=== PATIENT | male | born 1975 | race Caucasian/White ===

== ENCOUNTER 2019-01-27 13:20 | Day surgery (SDC) | payer OTHER ==
[~2019-01-27] VITALS: Ht 172.7 cm; Wt 78.8 kg
[~2019-01-27 13:20] MED LIST: DAYQUIL PO; GABA600T14 PO; MELOXICAM PO; NYQUIL PO; SUDAFED PO; SUDAFED SINUS PO; TRAMADOL PO
[2019-01-27 13:57] VITALS: BP 123/78
[2019-01-27] MEDS ORDERED: OXYC-302 PO (14:07)
[2019-01-27] MEDS ORDERED: LACTATED RINGERS 1,000 ML IV SCH (14:24)
[2019-01-27] MEDS ORDERED: MIDAZOLAM 1 MG/ML, 2ML ONE (14:42)
[2019-01-27] MEDS ORDERED: CEFAZOLIN 1,000 MG ONE ×2 (14:43)
[2019-01-27] MEDS ORDERED: PROPOFOL 10 MG/ML, 20ML ONE (14:43)
[2019-01-27] MEDS ORDERED: FENTANYL PF 250 MCG/5ML ONE (14:43)
[2019-01-27] MEDS ORDERED: ROPIvacaine/PF 0.5%, 30 ML ONE ×2 (14:45)
[2019-01-27] MEDS ORDERED: BUPIVACAINE/PF-EPI 0.5% 1:200K ONE (15:27)
[2019-01-27] MEDS ORDERED: MORPHINE SULFATE 4 MG/ML, 1ML IVPush PRN (15:30)
[2019-01-27] MEDS ORDERED: hydrALAzine 20 MG/ML, 1ML IV PRN (15:30)
[2019-01-27] MEDS ORDERED: ONDANSETRON ODT 8 MG PO PRN (15:30)
[2019-01-27] MEDS ORDERED: ONDANSETRON 2MG/ML, 2ML IV PRN (15:30)
[2019-01-27] MEDS ORDERED: PROMETHAZINE 25 MG SUPP PR PRN (15:30)
[2019-01-27] MEDS ORDERED: ACETAMINOPHEN 325 MG TABLET PO PRN (15:30)
[2019-01-27] MEDS ORDERED: PROMETHAZINE 12.5 MG SUPP PR PRN (15:30)
[2019-01-27] MEDS ORDERED: LABETALOL 5 MG/ML SYRINGE IV PRN (15:30)
[2019-01-27] MEDS ORDERED: HYDROmorphone 2 MG/ML, 1ML IVPush PRN (15:30)
[2019-01-27] MEDS ORDERED: MEPERIDINE/PF 25MG/0.5ML IVPush PRN (15:30)
[2019-01-27] MEDS ORDERED: PROMETHAZINE 25 MG/ML, 1ML IV PRN (15:30)
[2019-01-27] MEDS ORDERED: OXYcodone 5 MG/5 ML ORAL.SOL UDC PO PRN (15:30)
[2019-01-27] MEDS ORDERED: FENTANYL PF 100 MCG/2ML IV PRN (15:30)
[2019-01-27] MEDS ORDERED: PROMETHAZINE 25 MG/ML, 1ML IM PRN ×2 (15:30)
[2019-01-27] MEDS ORDERED: OXYcodone 5 MG/5 ML ORAL.SOL UDC ONE (16:50)
[2019-01-27] MEDS ORDERED: FENTANYL PF 100 MCG/2ML ONE (16:50)
== END 2019-01-27 18:30 | disposition home or self-care (01) ==
LOC: OR 13:20
PROVIDERS: ATTEND Orthopaedic Surgery
DX: S82.841A Displaced bimalleolar fracture of right lower leg, initial encounter for closed fracture (principal); X58.XXXA Exposure to other specified factors, initial encounter; Y93.89 Activity, other specified; Y92.89 Other specified places as the place of occurrence of the external cause; Y99.8 Other external cause status; Z87.891 Personal history of nicotine dependence
CPT/HCPCS: 27814; 64445; 64447; 73600; 76000; C1713; J0690; J2250; J2704; J2795; J3010; J7120; 76001

== ENCOUNTER 2019-12-04 18:35 | Emergency (ER) | payer SELFPAY ==
[~2019-12-04] VITALS: Ht 172.7 cm; Wt 79.3 kg
[~2019-12-04 18:35] MED LIST changes: +OXYC-302 PO
[2019-12-04] MEDS ORDERED: ALBUTEROL SULFATE 2.5 MG/3 ML NPPB ONE (19:00)
[2019-12-04 19:05] LABS: BASOPHILS # (AUTO) 0.03 x10^3/uL (0-0.1); BASOPHILS % (AUTO) 0 % (0-1); EOSINOPHILS # (AUTO) 0.16 x10^3/uL (0-0.4); EOSINOPHILS % (AUTO) 2 % (1-7); LYMPHOCYTES # (AUTO) 1.53 x10^3/uL (1-3.4); LYMPHOCYTES % (AUTO) 23 % (22-44); MD NO; MEAN CORPUSCULAR HEMOGLOBIN 28.9 pg (27.5-34.5); MEAN CORPUSCULAR HGB CONC 32.8 g/dL (33.2-36.2); MEAN CORPUSCULAR VOLUME 88.4 fL (81-97); MEAN PLATELET VOLUME 9.5 fL (7.4-10.4); MONOCYTES # (AUTO) 0.94 x10^3/uL (0.2-0.8); MONOCYTES % (AUTO) 14 % (2-9); NEUTROPHILS # (AUTO) 4.13 x10^3/uL (1.8-6.8); NEUTROPHILS % (AUTO) 61 % (42-75); PLATELET COUNT 281 x10^3/uL (130-400); RED BLOOD COUNT 5.53 x10^6/uL (4.38-5.82); RED CELL DISTRIBUTION WIDTH 14.7 % (9.4-14.8)
[2019-12-04 19:15] LABS: CHLORIDE 102 mmol/L (98-107)
[2019-12-04 19:19] LABS: ALBUMIN 3.9 g/dL (3.4-5.0); ANION GAP 6 mmol/L (5-15); CREATININE 1.11 mg/dL (0.7-1.3)
--- NOTE | 2019-12-04 19:58 | NUR ---
Pt presents to ed c/o "i've got pneuomonia." States coughx2.5 weeks w/ productive green phlegm present. Intermittent febrile s/s. States been hospitalized multiple times for pneumonia. Denies any hemoptosis or recent weight loss. Denies cp. Denies any gi/gu s/s. Monitoring applied. Vss. Called rt for duoneb.
[2019-12-04] MEDS ORDERED: ALBUTEROL/IPRATROPIUM 2.5MG/0.5MG, 3 ML ONE (20:05)
--- NOTE | 2019-12-04 20:07 | NUR ---
Rt at bedside.
--- NOTE | 2019-12-04 20:14 | NUR ---
pt is receving breathing tx now
[2019-12-04] MEDS ORDERED: ALBUTEROL SULFATE 2.5 MG/3 ML ONE (21:37)
--- NOTE | 2019-12-04 22:02 | NUR ---
pt rec'd 2nd tx breathing pt stated " ok i am ready to go home " vss stable oxygen sats wdl given dc instruction with prescription pt understood pt up ambulated to check out
[2019-12-04 22:03] VITALS: BP 121/65
== END 2019-12-04 22:30 | disposition home or self-care (01) ==
LOC: ED 22:00
DX: J20.9 Acute bronchitis, unspecified (principal); B34.9 Viral infection, unspecified; R51 Headache
CPT/HCPCS: 36415; 71046; 80048; 82040; 85025; 93005; 94640; 99284; J7512; J7613

== ENCOUNTER 2020-08-27 04:15 | Emergency (ER) | payer OTHER ==
[~2020-08-27] VITALS: Ht 172.7 cm; Wt 80.9 kg
[2020-08-27] MEDS ORDERED: ACETAMINOPHEN 500 MG TABLET ONE (05:21)
[2020-08-27] MEDS ORDERED: ACETAMINOPHEN 500 MG TABLET PO ONE (05:30)
[2020-08-27 06:24] VITALS: BP 128/85
== END 2020-08-27 06:45 | disposition home or self-care (01) ==
LOC: ED 05:29
DX: J00 Acute nasopharyngitis [common cold] (principal); Z20.828 Contact with and (suspected) exposure to other viral communicable diseases; R05 Cough; R09.81 Nasal congestion; R50.9 Fever, unspecified; M79.10 Myalgia, unspecified site
CPT/HCPCS: 36415; 71045; 87081; 87635; 87880; 99284

== ENCOUNTER 2021-04-05 18:34 | Emergency (ER) | payer MEDICAID, OTHER ==
[~2021-04-05] VITALS: Ht 172.7 cm; Wt 87.5 kg
[~2021-04-05 18:34] MED LIST changes: -OXYC-302 PO; +OXYC1TAB14 PO
[2021-04-05 19:11] LABS: BASOPHILS % (AUTO) 1 % (0-1); EOSINOPHILS % (AUTO) 3 % (1-7); LYMPHOCYTES % (AUTO) 23 % (22-44); MEAN CORPUSCULAR HEMOGLOBIN 29.1 pg (27.5-34.5); MEAN CORPUSCULAR HGB CONC 33.1 g/dL (33.2-36.2); MEAN PLATELET VOLUME 9.2 fL (7.4-10.4); MONOCYTES % (AUTO) 10 % (2-9); NEUTROPHILS % (AUTO) 63 % (42-75); PLATELET COUNT 298 x10^3/uL (130-400); RED BLOOD COUNT 5.24 x10^6/uL (4.38-5.82); RED CELL DISTRIBUTION WIDTH 14.3 % (9.4-14.8)
[2021-04-05 19:12] LABS: MD NO
[2021-04-05 19:21] LABS: ALANINE AMINOTRANSFERASE 19 U/L (12-78); ALBUMIN 3.8 g/dL (3.4-5.0); ANION GAP 4 mmol/L (5-15); CALCIUM 8.8 mg/dL (8.5-10.1); CHLORIDE 108 mmol/L (98-107); CREATININE 0.95 mg/dL (0.7-1.3)
[2021-04-05 19:23] LABS: ALKALINE PHOSPHATASE 79 U/L (45-117); BILIRUBIN,TOTAL 0.4 mg/dL (0.2-1.0)
[2021-04-05 20:57] VITALS: BP 128/108
[2021-04-05] MEDS ORDERED: KETOROLAC 30 MG/1 ML ONE (21:17)
[2021-04-05] MEDS ORDERED: BENZONATATE 100 MG CAPSULE ONE (21:17)
[2021-04-05] MEDS ORDERED: BENZONATATE 100 MG CAPSULE PO ONE (21:30)
[2021-04-05] MEDS ORDERED: KETOROLAC 30 MG/1 ML IM ONE (21:30)
== END 2021-04-05 22:06 | disposition home or self-care (01) ==
LOC: ED 21:56
DX: J06.9 Acute upper respiratory infection, unspecified (principal); R51.9 Headache, unspecified; R05 Cough; M79.10 Myalgia, unspecified site; R50.9 Fever, unspecified; R94.31 Abnormal electrocardiogram [ECG] [EKG]; R06.00 Dyspnea, unspecified; F17.210 Nicotine dependence, cigarettes, uncomplicated; Z72.9 Problem related to lifestyle, unspecified
CPT/HCPCS: 36415; 71045; 80053; 85025; 93005; 96372; 99285; 99406; J1885